=== PATIENT | male | born 1970 | race African-American/Black ===

== ENCOUNTER 2022-07-17 08:09 | Emergency (ER) | payer OTHER ==
[2022-07-17 08:28] VITALS: BP 134/78; PULSE 92; RESP 18; TEMP 98; BMI 22.2
[2022-07-17] MEDS ORDERED: DEXAMETHASONE SOD PHOSPHATE 10 MG/1 ML VIAL IM ONE (09:21)
[2022-07-17] MEDS ORDERED: KETOROLAC TROMETHAMINE 30 MG/1 ML VIAL IM ONE (09:22)
[2022-07-17] MEDS ORDERED: KETOROLAC TROMETHAMINE 30 MG/1 ML VIAL ONE (09:27)
[2022-07-17] MEDS ORDERED: DEXAMETHASONE SOD PHOSPHATE 10 MG/1 ML VIAL ONE (09:28)
== END 2022-07-17 10:07 | disposition home or self-care (01) ==
LOC: JERFT 08:09 → JER 08:09 → JERFT 10:07
PROC: 3E023GC Introduction of Other Therapeutic Substance into Muscle, Percutaneous Approach (ICD-10-PCS; principal; 2022-07-17)
PROC: 3E0233Z Introduction of Anti-inflammatory into Muscle, Percutaneous Approach (ICD-10-PCS; 2022-07-17)
DX: M79.602 Pain in left arm (principal)
CPT/HCPCS: 93005; 93010; 99284-25; J1100